=== PATIENT | female | born 1970 | race Caucasian/White ===

== ENCOUNTER 2022-10-04 10:50 | Inpatient (IN) | payer BC ==
[2022-10-02 11:07] VITALS: BMI 33.7
[2022-10-02 17:21] LABS: Hemoglobin 14.7 g/dL (12.0-15.5); Mean Corpuscular HGB CONC 32.7 g/dL (32.0-36.0); Mean Corpuscular Hemoglobin 26.9 pg (27.0-33.0); Mean Corpuscular Volume 82.3 fl (81.6-98.3); Platelet Count 300 10x3/uL (150-450); RBC Distribution Width 13.2 % (11.5-14.5); Red Blood Cell (RBC) Count 5.47 10x6/uL (3.90-5.03); White Blood Cell (WBC) Count 8.1 10x3/uL (3.5-10.5)
[2022-10-02 17:33] LABS: BHCG - Serum Negative (NEGATIVE); Pregs Control Background? CLEAR/WHITE (CLR/WHITE); Pregs Control Bar Appear? YES (CONTROL BAR)
[2022-10-02 17:41] LABS: ALT (SGPT) 39 U/L (8-55); AST (SGOT) 42 U/L (5-34); Albumin 4.3 g/dL (3.5-5.0); Alkaline Phosphatase 117 U/L (40-110); Anion Gap 16 mmol/L (10-20); BUN (Urea Nitrogen) 14 mg/dL (9.8-20.1); Bilirubin, Direct 0.1 mg/dL (0.1-0.3); Bilirubin, Total 0.3 mg/dL (0.2-1.2); Calc. Creatinine Clearance 0 mL/min (70-130); Calcium 9.8 mg/dL (7.8-10.44); Carbon Dioxide 22 mmol/L (22-29); Chloride 104 mmol/L (98-107); Estimated GFR 96; Glucose 78 mg/dL (70-105); Potassium 4.1 mmol/L (3.5-5.1); Protein, Total 7.7 g/dL (6.0-8.3); Sodium 138 mmol/L (136-145)
[~2022-10-04 10:50] MED LIST: CeleCOXIB 100 MG CAP ONE
[2022-10-04] MEDS ORDERED: Gabapentin 300 MG CAP ONE (10:51)
[2022-10-04] MEDS ORDERED: Famotidine/PF 20 mg/2ml Vial ONE (10:51)
[2022-10-04] MEDS ORDERED: Fentanyl 250 MCG/5 ML VIAL ONE (11:50)
[2022-10-04] MEDS ORDERED: PROPOFOL 20 ML ONE ×2 (11:50→13:15)
[2022-10-04] MEDS ORDERED: Midazolam HCl 2 mg/2 ml Vial ONE (11:50)
[2022-10-04] MEDS ORDERED: Lidocaine 1% PF 5 ML VIAL ONE (11:51)
[2022-10-04] MEDS ORDERED: Ondansetron PF 4 MG/2 ML Vial ONE (11:51)
[2022-10-04] MEDS ORDERED: Ketorolac Tromethamine 30 MG/ML VIAL ONE (11:51)
[2022-10-04] MEDS ORDERED: Rocuronium Bromide 10 MG/ML (10ML VIAL) ONE ×2 (11:51→11:53)
[2022-10-04] MEDS ORDERED: Dexamethasone 20 MG/5 ML VIAL ONE (11:52)
[2022-10-04] MEDS ORDERED: Bupivacaine HCl 0.5%/Epinephrine 1:200,000/PF 30 ml Vial ONE (11:58)
[2022-10-04] MEDS ORDERED: CEFAZOLIN 2 GM VIAL ONE (12:22)
[2022-10-04] MEDS ORDERED: Insulin Regular 300 UNITS/3 ML VIAL ONE (12:29)
[2022-10-04] MEDS ORDERED: Fentanyl 100 MCG/2 ML VIAL ONE (13:35)
[2022-10-04] MEDS ORDERED: Labetalol HCl 100 MG/20 ML VIAL ONE (13:55)
[2022-10-04] MEDS ORDERED: Meperidine HCl/PF 25 MG/ML VIAL ONE (17:16)
[2022-10-04] MEDS ORDERED: HYDROcodone/Acetaminophen 5/325 mg Tablet PO PRN ×2 (17:26)
[2022-10-04] MEDS ORDERED: Dextrose 50% Abboject 50 ML SYRINGE SLOW IVP PRN (17:26)
[2022-10-04] MEDS ORDERED: Zolpidem Tartrate 5 MG TAB PO PRN (17:26)
[2022-10-04] MEDS ORDERED: Promethazine HCl 25 MG/ML VIAL IM PRN (17:26)
[2022-10-04] MEDS ORDERED: Bisacodyl 10 MG SUPP PR PRN (17:26)
[2022-10-04] MEDS ORDERED: Acetaminophen 325 MG TAB PO PRN (17:26)
[2022-10-04] MEDS ORDERED: Simethicone Chewable 80 MG TAB PO PRN (17:26)
[2022-10-04] MEDS ORDERED: Ondansetron PF 4 MG/2 ML Vial IVP PRN (17:26)
[2022-10-04] MEDS ORDERED: Dextrose 5% in Water 1,000 ML IV PRN (17:26)
[2022-10-04] MEDS ORDERED: diphenhydrAMINE 25 MG CAP PO PRN (17:26)
[2022-10-04] MEDS ORDERED: Fentanyl 100 MCG/2 ML VIAL SLOW IVP PRN (17:30)
[2022-10-04] MEDS: Lactated Ringer's 1,000 ML IV SCH (19:00)
[2022-10-04] MEDS: Insulin Regular 300 UNITS/3 ML VIAL SC PRN (20:44)
[2022-10-04] MEDS: Ketorolac Tromethamine 30 MG/ML VIAL IVP SCH (20:46)
[2022-10-04] MEDS: Docusate Calcium (SURFAK) 240 MG CAP PO SCH (20:47)
[2022-10-04] MEDS ORDERED: Amlodipine 5 MG TAB PO SCH (21:00)
[2022-10-05] MEDS: Insulin Regular 300 UNITS/3 ML VIAL SC PRN ×3 (00:19→08:22)
[2022-10-05] MEDS: Ketorolac Tromethamine 30 MG/ML VIAL IVP SCH ×3 (04:08→10:21)
[2022-10-05 05:15] LABS: Hemoglobin 12.9 g/dL (12.0-15.5); Mean Corpuscular HGB CONC 31.7 g/dL (32.0-36.0); Mean Corpuscular Hemoglobin 25.3 pg (27.0-33.0); Mean Platelet Volume 9.8 fl (7.4-10.4); Platelet Count 273 10x3/uL (150-450); RBC Distribution Width 12.9 % (11.5-14.5); Red Blood Cell (RBC) Count 5.09 10x6/uL (3.90-5.03); White Blood Cell (WBC) Count 11.4 10x3/uL (3.5-10.5)
[2022-10-05 05:23] LABS: Anion Gap 16 mmol/L (10-20); BUN (Urea Nitrogen) 17 mg/dL (9.8-20.1); Calc. Creatinine Clearance 112 mL/min (70-130); Calcium 8.8 mg/dL (7.8-10.44); Carbon Dioxide 21 mmol/L (22-29); Chloride 103 mmol/L (98-107); Estimated GFR 96; Glucose 334 mg/dL (70-105); Potassium 4.5 mmol/L (3.5-5.1); Sodium 135 mmol/L (136-145)
[2022-10-05] MEDS: Lactated Ringer's 1,000 ML IV SCH (08:10)
[2022-10-05] MEDS ORDERED: Insulin NPH Human Isophane 100 UNIT/ML (10 ML VIAL) SC SCH (09:00)
[2022-10-05] MEDS: Docusate Calcium (SURFAK) 240 MG CAP PO SCH (09:06)
[2022-10-05 11:52] VITALS: BP 133/61; TEMP 98
[2022-10-10] MEDS ORDERED: Ibuprofen 800 MG TAB PO SCH (06:00)
== END 2022-10-05 16:05 | disposition home or self-care (01) | DRG 743 ==
LOC: CSHSDC 10:50 → UNDOADMIN 19:45 → CSHPED 19:45 → CSHTELE 19:45 → UNDODISIN 10-05 16:05
PROVIDERS: ADMIT Student in an Organized Health Care Education/Training Program; ATTEND Student in an Organized Health Care Education/Training Program
PROC: 0UT94ZZ Resection of Uterus, Percutaneous Endoscopic Approach (ICD-10-PCS; principal; 2022-10-04)
PROC: 0UT24ZZ Resection of Bilateral Ovaries, Percutaneous Endoscopic Approach (ICD-10-PCS; 2022-10-04)
PROC: 0UT74ZZ Resection of Bilateral Fallopian Tubes, Percutaneous Endoscopic Approach (ICD-10-PCS; 2022-10-04)
PROC: 0DNW4ZZ Release Peritoneum, Percutaneous Endoscopic Approach (ICD-10-PCS; 2022-10-04)
PROC: 8E0W4CZ Robotic Assisted Procedure of Trunk Region, Percutaneous Endoscopic Approach (ICD-10-PCS; 2022-10-04)
DX: N80.9 Endometriosis, unspecified (principal); D25.9 Leiomyoma of uterus, unspecified; I10 Essential (primary) hypertension; E78.5 Hyperlipidemia, unspecified; E11.9 Type 2 diabetes mellitus without complications; Z79.4 Long term (current) use of insulin; Z79.899 Other long term (current) drug therapy; Z90.49 Acquired absence of other specified parts of digestive tract; Z88.2 Allergy status to sulfonamides
CPT/HCPCS: 36415; 36416; 80048; 80076; 84703; 85027; 86850; 86900; 86901; 88307; J1100; J1815; J1885; J2175; J2250; J2405; J2704; J3010; J7120; S0028